=== PATIENT | female | born 1980 | race Caucasian/White ===

== ENCOUNTER → 2021-04-25 | Outpatient (CLI) | payer OTHER ==
[~2021-04-25] MED LIST: KEFLEX500 MG PO
== END ==
LOC: EXRD 10:17
DX: S89.90XA Unspecified injury of unspecified lower leg, initial encounter (principal); M25.462 Effusion, left knee
CPT/HCPCS: 73564

== ENCOUNTER → 2021-05-05 | Outpatient (CLI) | payer OTHER | LOC: KOH-I 09:15 | DX: S83.512D Sprain of anterior cruciate ligament of left knee, subsequent encounter (principal); S80.02XD Contusion of left knee, subsequent encounter | CPT/HCPCS: 73721 ==